=== PATIENT | female | born 1950 | race Caucasian/White ===

== ENCOUNTER 2022-06-27 09:28 | Outpatient (CLI) | payer MEDICARE, SELFPAY ==
[2022-06-27 14:42] LABS: Chloride* 106 mmol/L (96-114)
[2022-06-27 14:43] LABS: Potassium* 4.4 mmol/L (3.6-5.1); Sodium* 142 mmol/L (135-149)
[2022-06-27 14:45] LABS: Cholesterol* 237 mg/dL (90-199)
[2022-06-27 14:46] LABS: Blood Urea Nitrogen* 17 mg/dL (7-30); Calcium* 9.7 mg/dL (8.4-10.6); Carbon Dioxide* 27 mmol/L (20-32); Creatinine* 1.1 mg/dL (0.5-1.5); Estimated Glomerular Filt Rate 54 ml/min; Glucose* 86 mg/dL (60-115); Triglycerides* 145 mg/dL (40-149)
[2022-06-27 14:47] LABS: HDL Cholesterol* 69 mg/dL (>=50); LDL Cholesterol Calculated 139 mg/dL (<100)
== END 2022-06-27 09:29 | disposition home or self-care (01) ==
PROVIDERS: PCP Family Medicine; Visit Provider Family Medicine
DX: E78.5 Hyperlipidemia, unspecified (principal); I10 Essential (primary) hypertension; E03.9 Hypothyroidism, unspecified
CPT/HCPCS: 80048; 80061; 84443

== ENCOUNTER 2023-07-01 08:19 | Outpatient (CLI) | payer MEDICARE, OTHER, SELFPAY | END 2023-07-01 08:20 | disposition home or self-care (01) | PROVIDERS: PCP Family Medicine; Visit Provider Family Medicine | DX: E78.2 Mixed hyperlipidemia (principal); E03.9 Hypothyroidism, unspecified; I10 Essential (primary) hypertension | CPT/HCPCS: 80048; 80061; 84443; 85025 ==

== ENCOUNTER 2024-07-05 09:20 | Outpatient (CLI) | payer MEDICARE, SELFPAY | END 2024-07-05 09:21 | disposition home or self-care (01) | PROVIDERS: PCP Family Medicine; Visit Provider Family Medicine | DX: E78.2 Mixed hyperlipidemia (principal); I10 Essential (primary) hypertension; E03.9 Hypothyroidism, unspecified; F41.1 Generalized anxiety disorder; Z01.818 Encounter for other preprocedural examination | CPT/HCPCS: 80048; 80061; 84443; 85025 ==